=== PATIENT | male | born 2000 | race Caucasian/White ===

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

== ENCOUNTER 2018-04-23 13:09 | Emergency (ER) | payer BC ==
[2018-04-23] MEDS ORDERED: ACETAMINOPHEN 500 MG TAB PO ONE (13:42)
[2018-04-23] MEDS ORDERED: NS 1,000 ML IV ONE (15:03)
--- NOTE | 2018-04-23 15:06 | EDPHY ---
H & P Stated Complaint: fever/chills/uri symptoms /neck pain flu and strep negative at [facility] Time Seen by Provider: 04/23/18 14:31 HPI/ROS: CHIEF COMPLAINT: Fever, body aches HISTORY OF PRESENT ILLNESS: 17-year-old male presents with fever and body aches. Onset of fever and chills 4 days ago. Associated with moderate body aches and sore throat. Also has nasal congestion and a slight cough. [facility] and rapid strep and flu swab negative. Tolerating oral fluids well usually, vomited once yesterday. Has generalized body aches including extremities, back and neck. No headache. REVIEW OF SYSTEMS: complete 10 point ROS reviewed and is negative except for the noted elements in the HPI - Personal History Current Tetanus Diphtheria and Acellular Pertussis (TDAP): Yes - Medical/Surgical History Hx Asthma: No Hx Chronic Respiratory Disease: No Hx Diabetes: No Hx Cardiac Disease: No Hx Renal Disease: No Hx Cirrhosis: No Hx Alcoholism: No Hx HIV/AIDS: No Hx Splenectomy or Spleen Trauma: No Other PMH: pmh: none. psh: - Social History Smoking Status: Never smoked Alcohol Use: Sober Additional Social History: Student at [employer] - Physical Exam Exam: General Appearance: Alert, pleasant, nontoxic-appearing, smiling and talkative Eyes: Pupils equal and round, no conjunctival pallor or injection ENT, Mouth: Mucous membranes moist, pharyngeal erythema including the soft palate, no exudate Neck: Normal inspection, supple, shotty adenopathy Respiratory: Lungs are clear to auscultation Cardiovascular: Regular rate and rhythm Gastrointestinal: Abdomen is soft and nontender Neurological: A&O, nonfocal, normal gait Skin: Warm and dry, no rash Extremities: Normal inspection Psychiatric: Mood and affect normal Constitutional: Initial Vital Signs Temperature (C) 38.6 C H 04/23/18 13:14 Heart Rate 106 H 04/23/18 13:14 Respiratory Rate 19 04/23/18 13:14 Blood Pressure 142/90 H 04/23/18 13:14 O2 Sat (%) 93 04/23/18 13:14 O2 Delivery Mode Room Air Allergies/Adverse Reactions: No Known Allergies Allergy (Verified 04/23/18 13:13) Home Medications: Medication Instructions Recorded Advil 04/23/18 Medical Decision Making ED Course/Re-evaluation: This patient presents with a viral syndrome. He is well-appearing and I do not suspect meningitis in this patient. The patient was reassured, as one student at [employer] has been diagnosed with meningitis, and this pt was concerned. He was not in contact with the patient and I do not have a clinical concern for meningitis. In addition he has been vaccinated. IV normal saline 1 liter and Decadron IV given. Feels better after IV fluids and Decadron. Will discharge home. Warning signs discussed. Differential Diagnosis: Differential diagnosis includes but is not limited to pneumonia, otitis media, peritonsillar abscess, retropharyngeal abscess, meningitis. - Data Points Laboratory Results: Laboratory Results 04/23/18 14:25 04/23/18 04/23/18 14:25 14:25 WBC 10.83 10^3/uL H 10^3/uL (3.80-9.50) RBC 5.15 10^6/uL 10^6/uL (4.40-6.38) Hgb 15.2 g/dL g/dL (13.7-17.5) Hct 43.3 % % (40.0-51.0) MCV 84.1 fL fL (81.5-99.8) MCH 29.5 pg pg (27.9-34.1) MCHC 35.1 g/dL g/dL (32.4-36.7) RDW 12.4 % % (11.5-15.2) Plt Count 184 10^3/uL 10^3/uL (150-400) MPV 10.6 fL fL (8.7-11.7) Neut % (Auto) 73.5 % % (39.3-74.2) Lymph % (Auto) 10.8 % L % (15.0-45.0) Irwin % (Auto) 14.9 % H % (4.5-13.0) Eos % (Auto) 0.0 % L % (0.6-7.6) Baso % (Auto) 0.3 % % (0.3-1.7) Nucleat RBC Rel Count 0.0 % % (0.0-0.2) Absolute Neuts (auto) 7.96 10^3/uL H 10^3/uL (1.70-6.50) Absolute Lymphs (auto) 1.17 10^3/uL 10^3/uL (1.00-3.00) Absolute Monos (auto) 1.61 10^3/uL H 10^3/uL (0.30-0.80) Absolute Eos (auto) 0.00 10^3/uL L 10^3/uL (0.03-0.40) Absolute Basos (auto) 0.03 10^3/uL 10^3/uL (0.02-0.10) Absolute Nucleated RBC 0.00 10^3/uL 10^3/uL (0-0.01) Immature Gran % 0.5 % % (0.0-1.1) Immature Gran # 0.05 10^3/uL 10^3/uL (0.00-0.10) RBC/WBC/PLT Morphology TNP Platelet Estimate TNP Monoscreen NEGATIVE (NEGATIVE) Medications Given: Discontinued Medications Acetaminophen (Tylenol) 1,000 mg PO EDNOW ONE Stop: 04/23/18 13:43 Last Admin: 04/23/18 13:44 Dose: 1,000 mg Dexamethasone (Decadron Injection) 4 mg IVP EDNOW ONE Stop: 04/23/18 15:08 Last Admin: 04/23/18 15:12 Dose: 4 mg Sodium Chloride (Ns) 1,000 mls @ 0 mls/hr IV ONCE ONE; Wide Open PRN Reason: Protocol Stop: 04/23/18 15:04 Last Admin: 04/23/18 15:12 Dose: 1,000 mls Departure - Departure Disposition: Home, Routine, Self-Care Clinical Impression: Viral syndrome Condition: Good Instructions: Viral Syndrome (ED) Additional Instructions: You received a L of IV fluids and Decadron in the emergency department today. Decadron is a steroid that will help with the sore throat. Ibuprofen 600 mg 3 times daily while the pain persists. Tylenol 650 mg every 4 hr as needed for fever and body aches. Referrals: [facility] [Clinic] - As per Instructions Stand Alone Forms: School Excuse
[2018-04-23] MEDS ORDERED: DEXAMETHASONE 4 MG/ML VIAL IVP ONE (15:07)
[2018-04-23 15:17] LABS: PLATELET COUNT 184 10^3/uL (150-400)
[2018-04-23 16:37] VITALS: BP 134/84
== END 2018-04-23 16:26 | disposition home or self-care (01) ==
DX: B34.9 Viral infection, unspecified (principal)
CPT/HCPCS: 96374; J1100

== ENCOUNTER 2018-09-07 14:07 | Emergency (ER) | payer BC ==
[2018-09-07 14:22] VITALS: BP 122/73
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
== END 2018-09-07 14:35 | disposition home or self-care (01) ==
DX: S61.210A Laceration without foreign body of right index finger without damage to nail, initial encounter (principal); W50.3XXA Accidental bite by another person, initial encounter; Y99.9 Unspecified external cause status